=== PATIENT | male | born 1955 | race Caucasian/White ===

== ENCOUNTER 2016-09-12 20:57 | Emergency (ER) | payer BC ==
[~2016-09-12] VITALS: Ht 177.8 cm; Wt 77.1 kg
[2016-09-12] MEDS ORDERED: BYSTOLIC10 MG PO (22:03)
[2016-09-12] MEDS ORDERED: CRESTOR20 MG PO (22:04)
[2016-09-12] MEDS ORDERED: ASPIRIN81 MG PO (22:04)
[2016-09-12] MEDS ORDERED: PREDNISONE1 MG PO (22:05)
[2016-09-12] MEDS ORDERED: AMBIEN5 MG PO (22:09)
[2016-09-12] MEDS ORDERED: ATIVAN0.5 MG PO (22:10)
== END 2016-09-12 22:45 | disposition short-term general hospital (02) ==
LOC: ER 20:57
DX: R53.83 Other fatigue (principal); E78.5 Hyperlipidemia, unspecified; I25.10 Atherosclerotic heart disease of native coronary artery without angina pectoris; M15.9 Polyosteoarthritis, unspecified; I10 Essential (primary) hypertension; Z79.82 Long term (current) use of aspirin; Z79.899 Other long term (current) drug therapy; Z98.49 Cataract extraction status, unspecified eye